=== PATIENT | male | born 2000 | race African-American/Black ===

== ENCOUNTER 2019-01-20 00:55 | Emergency (ER) | payer OTHER ==
[~2019-01-20] VITALS: Ht 162.6 cm; Wt 65.0 kg
[2019-01-20] MEDS ORDERED: KETOROLAC 60 MG/2 ML VIAL (J1885) IM ONE (02:15)
[2019-01-20 02:19] VITALS: BP 134/93
--- NOTE | 2019-01-20 08:43 | REP ---
RIGHT RIBS: REASON: Trauma. COMPARISON: None. FINDINGS: Five views of the ribs show no acute fracture or destructive osseous lesion. The accompanying frontal view of the chest shows no cardiomegaly, infiltrates, effusions or pneumothoraces. IMPRESSION: Negative ribs series. Electronically Signed by Kashif Green DO 01/20/2019 09:23 A
== END 2019-01-20 02:57 | disposition home or self-care (01) ==
LOC: M ED 00:55
DX: Z04.1 Encounter for examination and observation following transport accident (principal); S60.511A Abrasion of right hand, initial encounter; S20.219A Contusion of unspecified front wall of thorax, initial encounter; V43.52XA Car driver injured in collision with other type car in traffic accident, initial encounter; Y92.410 Unspecified street and highway as the place of occurrence of the external cause; Y93.89 Activity, other specified; Y99.8 Other external cause status
CPT/HCPCS: 71101; 96372; 99283; J1885

== ENCOUNTER 2022-12-10 13:19 | Emergency (ER) | payer OTHER, SELFPAY ==
[~2022-12-10] VITALS: Ht 165.1 cm; Wt 65.9 kg
[2022-12-10 14:16] LABS: APPEARANCE, URINE CLEAR (CLEAR); BACTERIA, URINE AUTO NEGATIVE (NEGATIVE); BILIRUBIN, URINE AUTO NEGATIVE (NEGATIVE); BLOOD, URINE BLOOD NEGATIVE (NEGATIVE); COLOR, URINE YELLOW (YELLOW); GLUCOSE, URINE (UA) AUTO NEGATIVE (NEGATIVE); KETONE, URINE AUTO NEGATIVE (NEGATIVE); LEUKOCYTE ESTERASE, URINE AUTO NEGATIVE (NEGATIVE); MUCUS, URINE SMALL (NEGATIVE); NITRITE, URINE AUTO NEGATIVE (NEGATIVE); PROTEIN, URINE AUTO NEGATIVE (NEGATIVE); RBC, URINE AUTO 2 /HPF (0-3); SPECIFIC GRAVITY URINE AUTO 1.016 (1.002-1.035); SQUAMOUS EPITHELIAL CELL UR AU 0 /HPF (0-6); WBC, URINE AUTO 0 /HPF (0-3)
[2022-12-10 15:37] LABS: GC DNA AMPLIFICATION NEGATIVE (NEGATIVE)
[2022-12-10 17:54] LABS: BASO % 0.5 % (0.0-1.0); EOS # 0.1 10^3/uL (0.0-0.5); EOS % 1.8 % (0.0-3.0); HEMATOCRIT 37.5 % (42.0-52.0); HEMOGLOBIN 12.4 g/dl (13.5-17.5); LYMPH # 1.8 10^3/uL (1.5-5.0); LYMPH % 22.5 % (24.0-44.0); MEAN CORPUSCULAR HEMOGLOBIN 29.1 pg (27.0-33.0); MEAN CORPUSCULAR HGB CONC 33.1 g/dl (32.0-36.5); MONO # 0.6 10^3/uL (0.0-0.8); MONO % 7.8 % (2.0-8.0); NEUTROPHILS # 5.4 10^3/uL (1.5-8.5); NEUTROPHILS % 67.1 % (36.0-66.0); PLATELET COUNT, AUTOMATED 304 10^3/uL (150-450); RED BLOOD COUNT 4.26 10^6/uL (4.30-6.10)
[2022-12-10] MEDS ORDERED: FLOM0.4C39 PO (18:11)
[2022-12-10 18:18] VITALS: BP 130/63; TEMP 98.1; O2SAT 100
== END 2022-12-10 18:28 | disposition home or self-care (01) ==
LOC: M ED 13:19
DX: R31.9 Hematuria, unspecified (principal); Z88.0 Allergy status to penicillin; Z91.018 Allergy to other foods